=== PATIENT | female | born 1960 | race Two or more races ===

== ENCOUNTER 2016-12-20 11:42 | Emergency (ER) | payer SELFPAY ==
[~2016-12-20] VITALS: Ht 160 cm; Wt 73.5 kg
[2016-12-20] MEDS ORDERED: ASPIRIN 325 MG TABLET PO ONE (12:30)
--- NOTE | 2016-12-20 12:33 | EKG ---
[facility] [address] [place] [address] Test Date: 2016-12-20 Test Time: 11:53:02 Pat Name: AGNES RODRIGUEZ Department: Room: Gender: F Core Inspector: : 1960 Requested By: RALF CHATMAN Order Number: [id number] Reading MD: Gustavo Maya Measurements Intervals [place] Rate: 68 P: 22 W[place]: 158 QRS: 16 QRSD: 94 T: 67 QT: 412 QTc: 443 Interpretive Statements SINUS RHYTHM Electronically Signed On 12-20-2016 16:09:25 CDT by Gustavo Maya
[2016-12-20 12:47] LABS: BASO # 0.1 x10^3/uL (0.0-0.2); BASO % 1 % (0-3); EOS % 3 % (0-3); HEMATOCRIT 30.4 % (36.0-47.0); HEMOGLOBIN 9.8 g/dL (12.0-15.5); LYMPH # 1.9 x10^3/uL (1.0-4.8); LYMPH % 16 % (24-48); MEAN CORPUSCULAR HEMOGLOBIN 27 pg (25-35); MEAN CORPUSCULAR HGB CONC 32 g/dL (31-37); MEAN CORPUSCULAR VOLUME 84 fL (79-100); MONO % 3 % (0-9); NEUT % 77 % (31-73); PLATELET COUNT 290 x10^3/uL (140-400); RED BLOOD COUNT 3.64 x10^6/uL (3.50-5.40); RED CELL DISTRIBUTION WIDTH 15.7 % (11.5-14.5); WHITE BLOOD COUNT 12.1 x10^3/uL (4.0-11.0)
[2016-12-20 12:53] LABS: CALCIUM 9.1 mg/dL (8.5-10.1); CREATININE 0.6 mg/dL (0.6-1.0); GFR 102.7; INR 1.2 (0.8-1.1); POTASSIUM 3.7 mmol/L (3.5-5.1); PROTHROMBIN TIME PATIENT 14.3 SEC (11.7-14.0)
[2016-12-20 13:00] LABS: ALBUMIN 3.3 g/dL (3.4-5.0); ALBUMIN/GLOBULIN RATIO 0.8 (1.0-1.7); TOTAL BILIRUBIN 0.3 mg/dL (0.2-1.0); TOTAL PROTEIN 7.3 g/dL (6.4-8.2)
--- NOTE | 2016-12-20 13:09 | PHYS DOC ---
Adult General Chief Complaint Chief Complaint: CHEST PAIN HPI HPI Patient is a 56 year old female who presents with chest pain. The patient reports 2 day history of intermittent throbbing/pressure like pain to the center of her chest, radiating to her back. She reports associated shortness of breath. Sometimes seems to worsen with movement but other times occurs when she is at rest. Denies associated nausea or diaphoresis. Denies fevers or chills , cough, lower extremity pain or swelling. She denies previous history of similar symptoms. No history of recent injury. She has history of colon cancer status post colon resection, now with liver metastases having just begun chemotherapy and scheduled to start radiation next week. Today she is referred from the oncology clinic by Dr. Steel. Review of Systems Review of Systems Constitutional: Denies fever or chills Eyes: Denies change in visual acuity HENT: Denies nasal congestion or sore throat Respiratory: Denies cough, reports shortness of breath Cardiovascular: For chest pain, denies edema GI: Denies abdominal pain, nausea, vomiting, bloody stools or diarrhea : Denies dysuria or hematuria Musculoskeletal: Denies back pain or joint pain Integument: Denies rash or skin lesions Neurologic: Denies headache, focal weakness or sensory changes Current Medications Current Medications Current Medications Medications (Trade) Dose Ordered Sig/Hawa Start Time Stop Time Status Last Admin Dose Admin Aspirin (Christy Aspirin) 325 mg 1X ONCE 12/20/16 12:30 12/20/16 12:40 DC 12/20/16 12:57 325 MG Info (Do NOT chart on this entry -- for MONITORING) 1 each PRN DAILY PRN 12/20/16 13:15 12/20/16 16:58 DC Iohexol (Omnipaque 300 Mg/ml) 75 ml 1X ONCE 12/20/16 13:15 12/20/16 13:16 DC 12/20/16 13:15 75 ML Allergies Allergies Allergies Coded Allergies Type Severity Reaction Last Updated Verified No Known Drug Allergies 12/20/16 No Physical Exam Physical Exam Constitutional: Well developed, well nourished, no acute distress, non-toxic appearance. HENT: Normocephalic, atraumatic, bilateral external ears normal, oropharynx moist, nose normal. Eyes: PERRLA, EOMI, conjunctiva normal, no discharge. Neck: supple, no stridor. Cardiovascular: RRR, no murmurs, no edema. Lungs & Thorax: LCTAB, no wheezing, no respiratory distress. No tenderness with palpation over the sternum Abdomen: soft, nontender, nondistended. Skin: Warm, dry, no erythema, no rash. Back: No tenderness. Extremities: No tenderness, no edema. No calf tenderness or swelling Neurologic: Alert and oriented X 3, no focal deficits noted. Psychologic: Affect normal, judgement normal, mood normal. Current Patient Data Vital Signs Vital Signs Date Time Temp Pulse Resp B/P Pulse Ox O2 Delivery O2 Flow Rate FiO2 12/20/16 16:24 68 20 161/74 97 Room Air 12/20/16 11:53 97.7 97.7 Lab Values Laboratory Tests Test 12/20/16 12:00 12/20/16 14:59 White Blood Count 12.1x10^3/uL (4.0-11.0) H Red Blood Count 3.64x10^6/uL (3.50-5.40) Hemoglobin 9.8g/dL (12.0-15.5) L Hematocrit 30.4% (36.0-47.0) L Mean Corpuscular Volume 84fL (79-100) Mean Corpuscular Hemoglobin 27pg (25-35) Mean Corpuscular Hemoglobin Concent 32g/dL (31-37) Red Cell Distribution Width 15.7% (11.5-14.5) H Platelet Count 290x10^3/uL (140-400) Neutrophils (%) (Auto) 77% (31-73) H Lymphocytes (%) (Auto) 16% (24-48) L Monocytes (%) (Auto) 3% (0-9) Eosinophils (%) (Auto) 3% (0-3) Basophils (%) (Auto) 1% (0-3) Neutrophils # (Auto) 9.3x10^3uL (1.8-7.7) H Lymphocytes # (Auto) 1.9x10^3/uL (1.0-4.8) Monocytes # (Auto) 0.4x10^3/uL (0.0-1.1) Eosinophils # (Auto) 0.3x10^3/uL (0.0-0.7) Basophils # (Auto) 0.1x10^3/uL (0.0-0.2) Prothrombin Time 14.3SEC (11.7-14.0) H Prothrombin Time INR 1.2 (0.8-1.1) H PTT 35SEC (24-38) Sodium Level 136mmol/L (136-145) Potassium Level 3.7mmol/L (3.5-5.1) Chloride Level 101mmol/L (98-107) Carbon Dioxide Level 28mmol/L (21-32) Anion Gap 7 (6-14) Blood Urea Nitrogen 14mg/dL (7-20) Creatinine 0.6mg/dL (0.6-1.0) Estimated GFR (Cockcroft-Gault) 102.7 BUN/Creatinine Ratio 23 (6-20) H Glucose Level 317mg/dL (70-99) H Calcium Level 9.1mg/dL (8.5-10.1) Total Bilirubin 0.3mg/dL (0.2-1.0) Aspartate Amino Transferase (AST) 40U/L (15-37) H Alanine Aminotransferase (ALT) 37U/L (14-59) Alkaline Phosphatase 173U/L (46-116) H Troponin I Quantitative < 0.017ng/mL (0.000-0.055) < 0.017ng/mL (0.000-0.055) KV-Wnx-Z-Type Natriuretic Peptide 377pg/mL (0-124) H Total Protein 7.3g/dL (6.4-8.2) Albumin 3.3g/dL (3.4-5.0) L Albumin/Globulin Ratio 0.8 (1.0-1.7) L Lipase 69U/L (73-393) L Laboratory Tests 12/20/16 12:00 Laboratory Tests 12/20/16 12:00 EKG EKG interpreted by me: NSr rate 68, no ST elevation, T waves inverted in leads V1- V2 without ST depression, normal intervals, no ectopy. no previous available for comparison. Radiology/Procedures Radiology/Procedures PROCEDURE: CHEST AP ONLY Exam: AP portable chest. History: Chest pain. Comparison: None. Findings: The heart and mediastinal structures are within normal limits for size. Lungs are without infiltrate. No pneumothorax or pleural effusion is appreciated. Chest port and catheter by left subclavian approach are seen with tip of the catheter projecting at the confluence of the brachiocephalic veins and the superior vena cava. Impression: 1. No acute cardiopulmonary process. DICTATED and SIGNED BY: XIOMARA BARROS MD DATE: 12/20/16 0678 PROCEDURE: CT ANGIOGRAPHY CHEST CT pulmonary angiogram with contrast History: Chest pain, history of malignancy, shortness of air. Comparison: None. Technique: Helical CT angiogram of the chest with attention to the pulmonary arteries was performed after the administration of intravenous contrast, 75 mL Omnipaque 300. Axial 2-D reconstructions were obtained. Coronal 3-D MIPS were also obtained. One or more of the following individualized dose reduction techniques were utilized for the study: Automated exposure control Adjustment of mA and/or kV according to patient's size Use of iterative reconstruction technique. Findings: Pulmonary arteries are adequately opacified. There is no evidence of pulmonary embolism. Thyroid is symmetric. Trachea and mainstem bronchi appear patent. No mediastinal lymphadenopathy is identified. No thoracic aortic dissection is seen. Heart and pericardium unremarkable. No pneumothorax or pleural effusion is seen. No acute airspace disease identified. No pulmonary masses or significant pulmonary nodules are appreciated The visualized liver demonstrates presence of multiple low density masses which measure up to 3 cm, compatible with metastatic disease. There is mild splenomegaly with spleen measuring 14 cm in axial dimension. Cholelithiasis is seen. Impression: 1. No evidence of pulmonary embolism. No acute abnormality identified in the chest. 2. Hepatic metastases. 3. Mild splenomegaly. 4. Cholelithiasis. DICTATED and SIGNED BY: XIOMARA BARROS MD DATE: 12/20/16 1830[] Course & Med Decision Making Course & Med Decision Making Pertinent Labs and Imaging studies reviewed. (See chart for details) The patient presents with chest pain. She declined need for pain medication here. Administered aspirin upon arrival. Obtained labs, EKG, chest x-ray. EKG showed T-wave inversions but labs unremarkable. Obtained chest x-ray as well as CT angiogram. No evidence of pneumonia or pulmonary embolism. The patient felt well and requested discharge home. Repeat troponin also negative. HEART score is 2, low risk. Discussed with Dr. Esparza who actually came to the emergency Department to see the patient. He is comfortable with plan for discharge home but will see the patient in his clinic later this week for follow -up and stress test. The patient was offered admission but she would like to go home. She feels well and has appointment with her primary care physician this week as well. Recommend rest, keep appointments, return to the emergency department for severe chest pain or shortness of breath, any otherwise worsening condition. Discharged home in stable condition. Dragon Disclaimer Dragon Disclaimer This electronic medical record was generated, in whole or in part, using a voice recognition dictation system. Departure Departure Impression: Primary Impression: Chest pain Additional Impressions: Leukocytosis Anemia Hyperglycemia Disposition: 01 HOME, SELF-CARE Condition: STABLE Referrals: UNKNOWN PCP NAME (PCP) JENNA VU MD Patient Instructions: Chest Pain (Nonspecific), [id number] Additional Instructions: You were seen in the emergency department today for chest pain. Your tests here did not show a serious cause of your symptoms. Please follow up with your primary care doctor in 2 days. Come back for severe chest pain or shortness of breath, or any otherwise worsening condition. Problem Qualifiers RALF CHATMAN MD Dec 20, 2016 13:09
[2016-12-20] MEDS ORDERED: IOHEXOL 300 MG/ML 75 ML VIAL IV ONE (13:15)
[2016-12-20] MEDS ORDERED: CONTRAST GIVEN MC PRN (13:15)
--- NOTE | 2016-12-20 13:39 | RAD ---
Exam: AP portable chest. History: Chest pain. Comparison: None. Findings: The heart and mediastinal structures are within normal limits for size. Lungs are without infiltrate. No pneumothorax or pleural effusion is appreciated. Chest port and catheter by left subclavian approach are seen with tip of the catheter projecting at the confluence of the brachiocephalic veins and the superior vena cava. Impression: 1. No acute cardiopulmonary process.
--- NOTE | 2016-12-20 14:26 | RAD ---
CT pulmonary angiogram with contrast History: Chest pain, history of malignancy, shortness of air. Comparison: None. Technique: Helical CT angiogram of the chest with attention to the pulmonary arteries was performed after the administration of intravenous contrast, 75 mL Omnipaque 300. Axial 2-D reconstructions were obtained. Coronal 3-D MIPS were also obtained. One or more of the following individualized dose reduction techniques were utilized for the study: Automated exposure control Adjustment of mA and/or kV according to patient's size Use of iterative reconstruction technique. Findings: Pulmonary arteries are adequately opacified. There is no evidence of pulmonary embolism. Thyroid is symmetric. Trachea and mainstem bronchi appear patent. No mediastinal lymphadenopathy is identified. No thoracic aortic dissection is seen. Heart and pericardium unremarkable. No pneumothorax or pleural effusion is seen. No acute airspace disease identified. No pulmonary masses or significant pulmonary nodules are appreciated The visualized liver demonstrates presence of multiple low density masses which measure up to 3 cm, compatible with metastatic disease. There is mild splenomegaly with spleen measuring 14 cm in axial dimension. Cholelithiasis is seen. Impression: 1. No evidence of pulmonary embolism. No acute abnormality identified in the chest. 2. Hepatic metastases. 3. Mild splenomegaly. 4. Cholelithiasis.
[2016-12-20 16:24] VITALS: BP 161/74
== END 2016-12-20 16:40 | disposition home or self-care (01) ==
LOC: ER 11:42
DX: R07.89 Other chest pain (principal); D72.829 Elevated white blood cell count, unspecified; D64.9 Anemia, unspecified; R73.9 Hyperglycemia, unspecified; C18.9 Malignant neoplasm of colon, unspecified; C78.7 Secondary malignant neoplasm of liver and intrahepatic bile duct; R16.1 Splenomegaly, not elsewhere classified; Z90.49 Acquired absence of other specified parts of digestive tract; Z79.82 Long term (current) use of aspirin
CPT/HCPCS: 36415; 71010; 71275; 80053; 83690; 83880; 84484; 85027; 85610; 85730; 93005; 99285; Q9967

== ENCOUNTER 2017-10-01 15:30 | Inpatient (IN) | payer OTHER ==
[2017-10-01] MEDS ORDERED: ACETAMINOPHEN 325 MG TABLET. PO ×2 (16:30)
[2017-10-01] MEDS ORDERED: DOCUSATE SODIUM 100 MG CAPSULE. PO ×2 (16:30)
[2017-10-01] MEDS ORDERED: DEXTROSE 50% 25 GM / 50ML DISP.SYRIN. IV ×2 (16:30)
[2017-10-01] MEDS ORDERED: ONDANSETRON PF 4 MG/2 ML VIAL. IV ×2 (16:30)
[2017-10-01] MEDS: INSULIN ASPART 300 UNITS/3 ML INSULN.PEN SQ ×2 (17:00)
[2017-10-01] MEDS: ENOXAPARIN 40 MG/0.4 ML SYRINGE. SQ ×2 (17:00)
[2017-10-01] MEDS: IV NORMAL SALINE 1000ML BAG 1,000 ML IV ×2 (17:02)
[2017-10-01] MEDS: POTASSIUM CHLORIDE 20 MEQ TABLET.ER. PO ×2 (17:18)
[2017-10-01] MEDS: hydrALAZINE 20 MG/ML VIAL. IVP ×2 (17:24)
[2017-10-01] MEDS: MORPHINE SULFATE 2 MG/ML DISP.SYRIN. IV ×2 (17:55)
[2017-10-01] MEDS: PIPERACILLIN/TAZOBACTAM 4.5 GM in IV NORMAL SALINE 100ML 100 ML IV (17:57)
[2017-10-01] MEDS ORDERED: ASA/APAP/CAFFEINE 250/250/65MG TABLET. PO ×2 (19:30)
[2017-10-01] MEDS ORDERED: PROCHLORPERAZINE 5 MG TABLET. PO ×2 (19:45)
[2017-10-01] MEDS: traZODone 100 MG TABLET. PO ×2 (20:14)
[2017-10-01] MEDS: traMADol 50 MG TABLET PO ×2 (20:14)
[2017-10-01] MEDS: SUCRALFATE 1 GM TABLET. PO ×2 (20:14)
[2017-10-01] MEDS: LISINOPRIL 10 MG TABLET PO ×2 (20:15)
[2017-10-01] MEDS: FAMOTIDINE 20 MG/2 ML VIAL IVP ×2 (20:16)
[2017-10-01 21:00] LABS: POC GLUCOSE 163 mg/dL (70-99)
[2017-10-02] MEDS: PIPERACILLIN/TAZOBACTAM 4.5 GM in IV NORMAL SALINE 100ML 100 ML IV ×4 (00:11→17:52)
[2017-10-02] MEDS: IV NORMAL SALINE 1000ML BAG 1,000 ML IV ×4 (02:30→12:30)
[2017-10-02] MEDS: MORPHINE SULFATE 2 MG/ML DISP.SYRIN. IV ×8 (03:03→14:48)
[2017-10-02] MEDS: IV RINGERS,LACTATED 1000ML 1,000 ML IV ×2 (06:46)
[2017-10-02] MEDS ORDERED: MORPHINE SULFATE 2 MG/ML DISP.SYRIN. IV ×4 (07:00→08:30)
[2017-10-02] MEDS ORDERED: fentaNYL PF VIAL 100 MCG/2 ML VIAL IV ×2 (07:00)
[2017-10-02] MEDS ORDERED: ONDANSETRON PF 4 MG/2 ML VIAL. IV ×2 (07:00)
[2017-10-02] MEDS ORDERED: HYDROmorphone 2 MG/ML VIAL IV ×2 (07:00)
[2017-10-02] MEDS ORDERED: LIDOCAINE 1% PF 2 ML VIAL. ID ×2 (07:00)
[2017-10-02] MEDS ORDERED: PROCHLORPERAZINE 10 MG/2 ML VIAL. IV ×2 (07:00)
[2017-10-02 07:10] LABS: POC GLUCOSE 160 mg/dL (70-99)
[2017-10-02] MEDS: FERROUS SULFATE 325 MG TABLET. PO ×2 (07:12)
[2017-10-02] MEDS: INSULIN ASPART 300 UNITS/3 ML INSULN.PEN SQ ×8 (07:12→21:38)
[2017-10-02] MEDS: LISINOPRIL 10 MG TABLET PO ×2 (07:12)
[2017-10-02] MEDS: FLUoxetine HCL 20 MG CAPSULE PO ×2 (07:12)
[2017-10-02] MEDS: MULTIVITAMIN with MINERAL TABLET. PO ×2 (07:12)
[2017-10-02] MEDS: SUCRALFATE 1 GM TABLET. PO ×8 (07:12→17:57)
[2017-10-02] MEDS: CHOLECALCIFEROL (VITAMIN D3) 1,000 UNIT TABLET PO ×2 (07:13)
[2017-10-02] MEDS ORDERED: LIDOCAINE 2% PF Vial for OR 5 ML VIAL. ×2 (07:20)
[2017-10-02] MEDS ORDERED: SUCCINYLCHOLINE 200 MG/10 ML VIAL. ×2 (07:20)
[2017-10-02] MEDS ORDERED: fentaNYL PF VIAL 100 MCG/2 ML VIAL ×2 (07:20)
[2017-10-02] MEDS ORDERED: ROCURONIUM 50 MG/5 ML VIAL. ×2 (07:20)
[2017-10-02] MEDS ORDERED: PROPOFOL 20 ML IV ×2 (07:20)
[2017-10-02 07:21] LABS: ADD MAN DIFF? NO
[2017-10-02 07:31] LABS: BASO # 0.1 x10^3/uL (0.0-0.2); BASO % 1 % (0-3); EOS # 0.2 x10^3/uL (0.0-0.7); EOS % 1 % (0-3); HEMATOCRIT 40.4 % (36.0-47.0); HEMOGLOBIN 13.2 g/dL (12.0-15.5); LYMPH # 1.5 x10^3/uL (1.0-4.8); LYMPH % 11 % (24-48); MEAN CORPUSCULAR HEMOGLOBIN 28 pg (25-35); MEAN CORPUSCULAR HGB CONC 33 g/dL (31-37); MEAN CORPUSCULAR VOLUME 86 fL (79-100); MONO # 1.3 x10^3/uL (0.0-1.1); MONO % 9 % (0-9); NEUT # 11.4 x10^3uL (1.8-7.7); NEUT % 78 % (31-73); PLATELET COUNT 317 x10^3/uL (140-400); RED BLOOD COUNT 4.69 x10^6/uL (3.50-5.40); RED CELL DISTRIBUTION WIDTH 18.1 % (11.5-14.5); WHITE BLOOD COUNT 14.6 x10^3/uL (4.0-11.0)
[2017-10-02 07:57] LABS: ALBUMIN 3.7 g/dL (3.4-5.0); ALK PHOS 273 U/L (46-116); ALT (SGPT) 47 U/L (14-59); ANION GAP 11 (6-14); AST (SGOT) 36 U/L (15-37); BLOOD UREA NITROGEN 6 mg/dL (7-20); CALCIUM 9.6 mg/dL (8.5-10.1); CARBON DIOXIDE 25 mmol/L (21-32); CHLORIDE 97 mmol/L (98-107); CREATININE 0.6 mg/dL (0.6-1.0); DIRECT BILIRUBIN 0.5 mg/dL (0.0-0.2); GFR 102.7; GLUCOSE 186 mg/dL (70-99); POTASSIUM 3.8 mmol/L (3.5-5.1); SODIUM 133 mmol/L (136-145); TOTAL BILIRUBIN 1.2 mg/dL (0.2-1.0); TOTAL PROTEIN 7.7 g/dL (6.4-8.2)
[2017-10-02] MEDS ORDERED: oxyCODONE/APAP 5/325 1 TAB TABLET PO ×4 (08:30→12:15)
[2017-10-02] MEDS ORDERED: DESFLURANE 61 TO 120 MINUTES IH ×2 (09:00)
[2017-10-02] MEDS ORDERED: DEXAMETHASONE SOD PHOS 20 MG/5 ML VIAL. ×2 (09:00)
[2017-10-02] MEDS ORDERED: NEOSTIGMINE 10 MG/10 ML VIAL. ×2 (09:06)
[2017-10-02] MEDS ORDERED: ONDANSETRON PF 4 MG/2 ML VIAL. ×2 (09:06)
[2017-10-02] MEDS ORDERED: GLYCOPYRROLATE 1 MG/5 ML VIAL. ×2 (09:07)
[2017-10-02] MEDS ORDERED: PHENYLEPHRINE in 0.9% NACL PF 1 MG/10 ML SYRINGE. IV (09:07)
[2017-10-02] MEDS ORDERED: FAMOTIDINE 20 MG/2 ML VIAL ×2 (09:17)
[2017-10-02] MEDS ORDERED: diphenhydrAMINE 50 MG/ML VIAL ×2 (09:17)
[2017-10-02] MEDS: BUPIVACAINE-EPI 0.25%-1:200000 50 ML VIAL. ×2 (09:19)
[2017-10-02] MEDS: IOHEXOL 300 MG/ML 100ML VIAL. ×2 (10:43)
[2017-10-02] MEDS: SURGICEL HEMOSTAT 4X8 EACH. ×2 (10:52)
[2017-10-02 11:45] LABS: POC GLUCOSE 187 mg/dL (70-99)
[2017-10-02] MEDS: fentaNYL PF VIAL 100 MCG/2 ML VIAL IV ×4 (11:48→12:19)
[2017-10-02] MEDS: oxyCODONE/APAP 5/325 1 TAB TABLET PO ×4 (14:46→21:27)
[2017-10-02] MEDS: ENOXAPARIN 40 MG/0.4 ML SYRINGE. SQ ×2 (17:00)
[2017-10-02 21:10] LABS: POC GLUCOSE 263 mg/dL (70-99)
[2017-10-02] MEDS: LACTOBACILLUS RHAMNOSUS GG 1 CAPSULE. PO ×2 (21:26)
[2017-10-02] MEDS: traZODone 100 MG TABLET. PO ×2 (21:26)
[2017-10-02] MEDS: FAMOTIDINE 20 MG/2 ML VIAL IVP ×2 (21:30)
[2017-10-03] MEDS: SUCRALFATE 1 GM TABLET. PO ×6 (00:16→12:25)
[2017-10-03] MEDS: IV NORMAL SALINE 1000ML BAG 1,000 ML IV ×4 (00:17→08:30)
[2017-10-03] MEDS: PIPERACILLIN/TAZOBACTAM 4.5 GM in IV NORMAL SALINE 100ML 100 ML IV ×3 (00:17→12:25)
[2017-10-03 05:42] LABS: ADD MAN DIFF? NO
[2017-10-03 05:49] LABS: BASO % 0 % (0-3); EOS # 0.1 x10^3/uL (0.0-0.7); EOS % 1 % (0-3); HEMATOCRIT 32.5 % (36.0-47.0); HEMOGLOBIN 10.6 g/dL (12.0-15.5); LYMPH # 0.9 x10^3/uL (1.0-4.8); LYMPH % 9 % (24-48); MEAN CORPUSCULAR HEMOGLOBIN 28 pg (25-35); MEAN CORPUSCULAR HGB CONC 33 g/dL (31-37); MEAN CORPUSCULAR VOLUME 86 fL (79-100); MONO # 0.7 x10^3/uL (0.0-1.1); MONO % 8 % (0-9); NEUT # 7.6 x10^3uL (1.8-7.7); NEUT % 82 % (31-73); PLATELET COUNT 165 x10^3/uL (140-400); RED BLOOD COUNT 3.77 x10^6/uL (3.50-5.40); RED CELL DISTRIBUTION WIDTH 18.1 % (11.5-14.5); WHITE BLOOD COUNT 9.3 x10^3/uL (4.0-11.0)
[2017-10-03] MEDS: oxyCODONE/APAP 5/325 1 TAB TABLET PO ×4 (07:48→12:23)
[2017-10-03] MEDS: INSULIN ASPART 300 UNITS/3 ML INSULN.PEN SQ ×4 (08:00→12:00)
[2017-10-03] MEDS: CHOLECALCIFEROL (VITAMIN D3) 1,000 UNIT TABLET PO ×2 (09:41)
[2017-10-03] MEDS: LACTOBACILLUS RHAMNOSUS GG 1 CAPSULE. PO ×2 (09:41)
[2017-10-03] MEDS: FLUoxetine HCL 20 MG CAPSULE PO ×2 (09:41)
[2017-10-03] MEDS: LISINOPRIL 10 MG TABLET PO ×2 (09:41)
[2017-10-03] MEDS: MULTIVITAMIN with MINERAL TABLET. PO ×2 (09:42)
[2017-10-03] MEDS: FERROUS SULFATE 325 MG TABLET. PO ×2 (09:42)
[2017-10-03 12:40] LABS: POC GLUCOSE 172 mg/dL (70-99)
[2017-10-03 13:14] LABS: POC GLUCOSE 121 mg/dL (70-99)
== END 2017-10-03 13:40 | disposition home or self-care (01) | DRG 417 ==
LOC: 4 NORTH 15:30
PROVIDERS: Internal Medicine
PROC: 0FT44ZZ Resection of Gallbladder, Percutaneous Endoscopic Approach (ICD-10-PCS; principal; 2017-10-02 08:46)
PROC: BF101ZZ Fluoroscopy of Bile Ducts using Low Osmolar Contrast (ICD-10-PCS; 2017-10-02 08:46)
DX: K80.00 Calculus of gallbladder with acute cholecystitis without obstruction (principal); R65.11 Systemic inflammatory response syndrome (SIRS) of non-infectious origin with acute organ dysfunction; C78.7 Secondary malignant neoplasm of liver and intrahepatic bile duct; E87.1 Hypo-osmolality and hyponatremia; C18.2 Malignant neoplasm of ascending colon; K25.9 Gastric ulcer, unspecified as acute or chronic, without hemorrhage or perforation; C19 Malignant neoplasm of rectosigmoid junction; E11.9 Type 2 diabetes mellitus without complications; E87.6 Hypokalemia; G43.909 Migraine, unspecified, not intractable, without status migrainosus; I10 Essential (primary) hypertension; K66.0 Peritoneal adhesions (postprocedural) (postinfection); K82.8 Other specified diseases of gallbladder; Z79.84 Long term (current) use of oral hypoglycemic drugs; Z79.899 Other long term (current) drug therapy; Z82.49 Family history of ischemic heart disease and other diseases of the circulatory system; Z85.038 Personal history of other malignant neoplasm of large intestine; Z92.21 Personal history of antineoplastic chemotherapy; Z92.3 Personal history of irradiation; Z90.49 Acquired absence of other specified parts of digestive tract; Z91.041 Radiographic dye allergy status
CPT/HCPCS: 36415; 74300; 76705; 80048; 80076; 82962; 85025; 88304; C1769; J0330; J0360; J1100; J1200; J1815; J2270; J2370; J2405; J2543; J2704; J2710; J3010; J3490; J7030; J7120; Q9967; S0028